=== PATIENT | female | born 1980 | race Caucasian/White ===

== ENCOUNTER 2019-08-02 07:15 | Inpatient (IN) | payer OTHER, SELFPAY ==
[2019-08-02 07:26] VITALS: BMI 29.1
[2019-08-02] MEDS: Lactated Ringers 500 ML 999 ML IV (07:32)
[2019-08-02 07:56] LABS: Absolute Neutrophil Count 10.1 X10^3/uL (2.0-7.7); Basophil# 0.03 X10^3/uL; Basophil% 0.2 % (0-1); Eosinophil# 0.03 X10^3/uL; Eosinophils% 0.2 % (0-5); Hematocrit 36.6 % (37-47); Hemoglobin 12.5 g/dL (12.0-15.0); Lymphocyte % 15.4 % (19-41); Mean Corp Hgb Conc 34.2 g/dL (32-36); Mean Corpuscular Hgb 33.5 pg (27.0-32.0); Mean Corpuscular Volume 98.1 fL (81-99); Mean Platelet Vol. 12.9 fl (6.2-12.0); Monocyte# 0.81 X10^3/uL; Monocyte% 6.2 % (0-10); NRBC Flagged by Analyzer 0 % (0-5); Neutrophil # 10.08 X10^3/uL (2.7-7.7); Neutrophil % 77.5 % (47-70); Platelet Count 121 K/mm3 (150-450); RBC Distribution Width CV 12.9 % (11.6-14.6); RBC Distribution Width SD 45.6 fl (35.1-43.9); Red Blood Count 3.73 M/mm3 (4.2-5.4)
[2019-08-02] MEDS: Oxytocin 30 units/NS 500 ml 30 UNITS/500 ML IV.SOLN IV (08:06)
[2019-08-02] MEDS: Lactated Ringers 1,000 ML 50 ML IV (08:06)
[2019-08-02] MEDS: Oxytocin 30 units/NS 500 ml 30 UNITS/500 ML IV.SOLN 334 UNITS IV (08:47)
--- NOTE | 2019-08-02 09:11 | PCM.HP.OB ---
History Date of Admission: 08/02/19 Final RAOUL: 08/02/19 Gestational age: 40 Weeks and 0 Days History of this : This is a 38 year-old, G [], P [], at 40 weeks gestational age. Allergies codeine Allergy (Verified 08/02/19 07:43) Rash Home Medications: Home Medications Folic Acid 1 mg PO DAILY PRN 08/02/19 Smoking Status: Former smoker Alcohol: None Number of Fetus(es): 1 History Past Pregnancies: Past Pregnancies Delivery Date Name GA/ Weeks Outcome Route Wt Infant Sex Labor Length Anesthesia Delivery Location Provider FOB Labs: See [facility] H&P Physical Exam General: Alert, Oriented x3 Abdomen: Soft, Non Tender, Non-Distended, Gravid Assessment/Plan This is a 38 year-old, G8, P3043, at 40 weeks gestational age in labor Patient admitted to L&D. She had a - see delivery note. See [facility] H&P
--- NOTE | 2019-08-02 09:26 | PCM.OPRPT ---
Vaginal Delivery Maternal Presentation: Active Labor Amniotic Membrane Rupture Type: Spontaneous at home Amniotic Fluid Description: Clear Final RAOUL: 08/02/19 Gestational age: 40 Weeks and 0 Days Date of Procedure: 08/02/19 Pre-Operative Diagnosis: Labor Post-Operative Diagnosis: Labor Surgery/ Procedure Performed: Spontaneous Vaginal Delivery Type of Anesthesia: Local with 1% lidocaine Description of Procedure: Patient prepped & draped in stirrups when C/C/+1. She pushed to deliver head. head gently guided to allow anterior and posterior shoulders. No excess traction placed on head. Tight body cord noted and thus clamped & cut. Body delivered and infant placed on maternal abdomen. Placenta delivered with gentle traction. Good uterine tone obtained. Presentation: MANOLO Placental Delivery Description: Expressed Placenta Disposition: [facility] Cord Vessel Description: 3 Vessels Cord Entanglement: Around neck x 1, loose - and around body x1 tight Estimated Blood Loss: 300ml Infant A gender: Male - Sarthak (1 minute): 9 (5 minute): 9 Episiotomy Description: None Laceration: 2nd degree - perineal - repaired with 3-0 vicryl Medications given after delivery: IV Pitocin Complications: None
[2019-08-02 15:37] VITALS: BP 127/61; PULSE 88; RESP 16; TEMP 36.8; O2SAT 98
[2019-08-02 19:52] VITALS: BP 127/58; PULSE 88; RESP 16; TEMP 37.1
[2019-08-03 00:23] VITALS: BP 125/61; PULSE 78; RESP 16; TEMP 36.8
[2019-08-03 04:16] VITALS: BP 97/54; PULSE 72; RESP 18; TEMP 36.8
--- NOTE | 2019-08-03 05:26 | DCINST_ITS ---
Discharge Diet: No Restrictions Discharge Activity: May Drive, May Shower May resume sexual activity in: 6 weeks Additional Instructions: If you experience any of the following, contact your healthcare provider. * Bleeding that soaks a pad every hour for 2 hours * Fever 100.4 or higher * Unrelieved incision or abdominal pain * Swelling, redness, discharge or bleeding from your incision or episiotomy site * Your incision begins to separate * Problems urinating (including inability to urinate or burning while urinating). * Visual changes * Severe headache * Flu-like symptoms * Pain or redness in one of both of your breasts * Pain, warmth, tenderness or swelling in your legs, especially the calf area * Frequent nausea and vomiting * Symptoms of depression or anxiety If you experience any of the following, call 911 or go to the nearest Emergency Room. * Chest pain * Problems breathing * Seizure activity * Partial or complete paralysis of a body part, slurred speech, weakness or drooping of the face, or a sudden inability to walk or hold your balance Allergies/Adverse Reactions: Allergies codeine Allergy (Verified 08/02/19 07:43) Rash Medications to take at Discharge Folic Acid 1 mg PO DAILY PRN 08/02/19 Acetaminophen [Tylenol] 1,000 mg PO Q8H PRN PRN tab 08/03/19 Naproxen [Naprosyn] 500 mg PO Q8H PRN PRN tab 08/03/19 Primary Care Physician: Care Physician,No Primary [Primary Care Provider] - Test Results: Test results from this visit will be discussed in further detail at your follow- up appointment, if applicable.
--- NOTE | 2019-08-03 05:26 | PCM.DCVAG ---
Discharge Diet: No Restrictions Discharge Activity: May Drive, May Shower May resume sexual activity in: 6 weeks Additional Instructions: If you experience any of the following, contact your healthcare provider. Bleeding that soaks a pad every hour for 2 hours Fever 100.4 or higher Unrelieved incision or abdominal pain Swelling, redness, discharge or bleeding from your incision or episiotomy site Your incision begins to separate Problems urinating (including inability to urinate or burning while urinating). Visual changes Severe headache Flu-like symptoms Pain or redness in one of both of your breasts Pain, warmth, tenderness or swelling in your legs, especially the calf area Frequent nausea and vomiting Symptoms of depression or anxiety If you experience any of the following, call 911 or go to the nearest Emergency Room. Chest pain Problems breathing Seizure activity Partial or complete paralysis of a body part, slurred speech, weakness or drooping of the face, or a sudden inability to walk or hold your balance Allergies/Adverse Reactions: Allergies codeine Allergy (Verified 08/02/19 07:43) Rash Medications to take at Discharge Folic Acid 1 mg PO DAILY PRN 08/02/19 Acetaminophen [Tylenol] 1,000 mg PO Q8H PRN PRN tab 08/03/19 Naproxen [Naprosyn] 500 mg PO Q8H PRN PRN tab 08/03/19 Primary Care Physician: Care Physician,No Primary [Primary Care Provider] - Test Results: Test results from this visit will be discussed in further detail at your follow-up appointment, if applicable.
--- NOTE | 2019-08-03 05:27 | PN.OBGYN_ITS ---
Subjective: No complaints - Physical Exam Vitals/I&O's: Vital Signs Temp Pulse Resp BP Pulse Ox 98.2 F 72 18 97/54 L 98 08/03/19 04:16 08/03/19 04:16 08/03/19 04:16 08/03/19 04:16 08/02/19 15:37 Oxygen Delivery Method Room Air Weight: 170 lb 13.732 oz Body Mass Index (BMI) 29.1 Intake and Output for Last 24 Hours 08/01/19 08/02/19 08/03/19 23:59 23:59 23:59 Intake Total 1035.54 / 1035.54 Output Total 750 / 750 Balance 285.54 / 285.54 General: Alert, Oriented x3 Abdomen: Soft, Non Tender, Non-Distended - ff mid & below umb Extremities: No Calf Tenderness Laboratory Results 08/02/19 07:32: WBC 13.0 H, RBC 3.73 L, Hgb 12.5, Hct 36.6 L, MCV 98.1, MCH 33.5 H, MCHC 34.2, RDW Std Deviation 45.6 H, RDW Coeff of Kath 12.9, Plt Count 121 L, MPV 12.9 H, Immature Gran % (Auto) 0.500, Neut % (Auto) 77.5 H, Lymph % (Auto) 15.4 L, [place] % (Auto) 6.2, Eos % (Auto) 0.2, Baso % (Auto) 0.2, Absolute Neuts (auto) 10.1 H, Absolute Lymphs (auto) 2.00, Nucleated RBC % 0 08/02/19 07:32: Blood Type A POSITIVE, Antibody Screen NEGATIVE Current Medications Acetaminophen (Tylenol) 1,000 mg PO Q8H PRN PRN PRN Reason: Pain Score 1-3/10 Bisacodyl (Dulcolax) 10 mg RECTAL UD PRN PRN Reason: If no BM Dibucaine (Dibucaine) 1 applic TOPICAL TID PRN PRN; Protocol PRN Reason: Discomfort Hydrocortisone (Hytone) 1 applic TOPICAL TID PRN PRN; Protocol PRN Reason: Discomfort Methylergonovine Maleate (Methergine) 0.2 mg IM X1 PRN PRN Reason: Excess bleeding/uterine atony Naproxen (Naprosyn) 500 mg PO Q8H PRN PRN PRN Reason: Pain Score 1-3/10 Ondansetron HCl (Zofran) 4 mg IV Q4H PRN PRN PRN Reason: Nausea Oxycodone HCl (Oxyir) 5 - 10 mg PO Q4H PRN PRN PRN Reason: Pain Score 4-10/10 Senna/Docusate Sodium (Senokot-S, Cari-Colace) 1 - 2 tablet PO DAILY PRN PRN PRN Reason: Constipation Simethicone (Mylicon) 80 mg PO PCHS PRN PRN Reason: Indigestion/Stomach pain Sodium Chloride () 5 - 15 ml IV UD PRN PRN Reason: SALINE FLUSH Medical Necessity - Tobacco Use Smoking Status: Former smoker Assessment/Plan PPD#1 D/c home later today per patient request
[2019-08-03 08:35] VITALS: BP 109/73; PULSE 82; RESP 16; TEMP 36.9; O2SAT 98
[2019-08-03 13:43] VITALS: BP 108/62; PULSE 85; RESP 16; TEMP 36.9; O2SAT 97
[2019-08-03 14:36] VITALS: RESP 16
== END 2019-08-03 14:30 | disposition home or self-care (01) | DRG 807 ==
PROVIDERS: Admitting Provider Obstetrics & Gynecology; Referring Provider Obstetrics & Gynecology; Visit Provider Obstetrics & Gynecology
DX: O69.1XX0 Labor and delivery complicated by cord around neck, with compression, not applicable or unspecified (principal); Z37.0 Single live birth; Z3A.40 40 weeks gestation of pregnancy; O70.1 Second degree perineal laceration during delivery; Z87.891 Personal history of nicotine dependence
CPT/HCPCS: 59025; 59050; 85025; 86850; 86900; 86901; 99218; J7120; G0378